=== PATIENT | male | born 1955 | race Native Hawaiian/Other Pacific Islander ===

== ENCOUNTER 2019-05-09 06:50 | Outpatient (CLI) | payer OTHER ==
[~2019-05-09 06:50] MED LIST: ASA LOW STR81 MG PO; PLAVIX75 MG PO; SIMV40TA57
== END 2019-05-09 20:05 | disposition home or self-care (01) ==
LOC: LABW 06:50
DX: R73.9 Hyperglycemia, unspecified (principal)
CPT/HCPCS: 36415; 82947; 83036

== ENCOUNTER 2019-10-31 11:25 | Outpatient (CLI) | payer OTHER ==
[2019-10-31 12:03] LABS: PLATELET COUNT 172 K/uL (142-355)
[2019-10-31 12:45] LABS: POTASSIUM 4.8 mmol/L (3.6-5.2)
== END 2019-10-31 23:54 | disposition home or self-care (01) ==
LOC: LAB 11:25
PROVIDERS: Internal Medicine
DX: E11.9 Type 2 diabetes mellitus without complications (principal); R53.83 Other fatigue
CPT/HCPCS: 80053; 80061; 81000; 82043; 82570; 83036; 84402; 84403; 84439; 84443; 85027; 87077; 87086; 87088

== ENCOUNTER 2020-08-19 13:56 | Outpatient (CLI) | payer OTHER | END 2020-08-19 21:39 | disposition home or self-care (01) | LOC: LABW 13:56 | PROVIDERS: ATTEND Internal Medicine | DX: R74.01 Elevation of levels of liver transaminase levels (principal); R53.82 Chronic fatigue, unspecified | CPT/HCPCS: 36415; 80074 ==

== ENCOUNTER 2020-08-30 08:53 | Outpatient (CLI) | payer OTHER | END 2020-08-30 19:49 | disposition home or self-care (01) | LOC: CT 08:53 → US 09:30 → CT 19:49 | PROVIDERS: ATTEND Internal Medicine | DX: Z12.2 Encounter for screening for malignant neoplasm of respiratory organs (principal); Z13.6 Encounter for screening for cardiovascular disorders; Z87.891 Personal history of nicotine dependence | CPT/HCPCS: G0297-TC ==

== ENCOUNTER 2020-09-25 10:28 | Outpatient (CLI) | payer OTHER | END 2020-09-25 19:20 | disposition home or self-care (01) | LOC: US 10:28 | PROVIDERS: ATTEND Internal Medicine Gastroenterology | DX: R79.89 Other specified abnormal findings of blood chemistry (principal) ==

== ENCOUNTER 2021-03-03 11:07 | Outpatient (CLI) | payer OTHER | END 2021-03-03 19:34 | disposition home or self-care (01) | LOC: US 11:07 | PROVIDERS: ATTEND Internal Medicine Cardiovascular Disease | DX: I65.29 Occlusion and stenosis of unspecified carotid artery (principal) ==

== ENCOUNTER 2021-08-07 13:38 | Outpatient (CLI) | payer OTHER ==
[2021-08-07 13:52] LABS: PLATELET COUNT 201 K/uL (142-355)
[2021-08-07 14:20] LABS: POTASSIUM 5.2 mmol/L (3.6-5.2)
== END 2021-08-07 20:44 | disposition home or self-care (01) ==
LOC: LAB 13:38
PROVIDERS: ATTEND Internal Medicine
DX: E11.9 Type 2 diabetes mellitus without complications (principal); Z12.5 Encounter for screening for malignant neoplasm of prostate; N40.0 Benign prostatic hyperplasia without lower urinary tract symptoms
CPT/HCPCS: 80053; 80061; 81000; 83036; 84153; 84439; 84443; 85027; 87077; 87086; 87088; 87186

== ENCOUNTER 2022-01-22 13:04 | Outpatient (CLI) | payer OTHER ==
[2022-01-22 13:19] LABS: PLATELET COUNT 188 K/uL (142-355)
[2022-01-22 14:22] LABS: POTASSIUM 4.6 mmol/L (3.6-5.2)
== END 2022-01-22 19:34 | disposition home or self-care (01) ==
LOC: LAB 13:04
PROVIDERS: ATTEND Internal Medicine
DX: E11.9 Type 2 diabetes mellitus without complications (principal)
CPT/HCPCS: 80053; 80061; 81002; 82043; 83036; 84439; 84443; 85027

== ENCOUNTER 2022-09-02 10:20 | Outpatient (CLI) | payer OTHER ==
[2022-09-02 10:49] LABS: PLATELET COUNT 195 K/uL (142-355)
[2022-09-02 11:04] LABS: POTASSIUM 4.7 mmol/L (3.6-5.2)
== END 2022-09-02 19:04 | disposition home or self-care (01) ==
LOC: LABW 10:20
PROVIDERS: ATTEND Internal Medicine Cardiovascular Disease
DX: Z79.899 Other long term (current) drug therapy (principal); R52 Pain, unspecified
CPT/HCPCS: 36415; 80053; 85027; 86140

== ENCOUNTER 2022-09-11 09:50 | Outpatient (CLI) | payer OTHER | END 2022-09-11 19:15 | disposition home or self-care (01) | LOC: LABW 09:50 | PROVIDERS: ATTEND Internal Medicine Cardiovascular Disease | DX: Z79.899 Other long term (current) drug therapy (principal); M10.9 Gout, unspecified; N39.0 Urinary tract infection, site not specified; N40.0 Benign prostatic hyperplasia without lower urinary tract symptoms | CPT/HCPCS: 36415; 81002; 83036; 84153; 84550 ==

== ENCOUNTER 2022-12-09 13:45 | Outpatient (CLI) | payer OTHER ==
[2022-12-09 14:32] LABS: PLATELET COUNT 188 K/uL (142-355)
[2022-12-09 14:58] LABS: POTASSIUM 4.6 mmol/L (3.6-5.2)
== END 2022-12-09 20:00 | disposition home or self-care (01) ==
LOC: LAB 13:45
PROVIDERS: ATTEND Internal Medicine
DX: E11.9 Type 2 diabetes mellitus without complications (principal)
CPT/HCPCS: 80053; 80061; 81002; 82043; 83036; 84439; 84443; 85027